=== PATIENT | male | born 1950 | race Caucasian/White ===

== ENCOUNTER 2024-01-01 06:33 | Emergency (ER) | payer OTHER, SELFPAY ==
[2024-01-01 06:46] VITALS: BP 192/107
[2024-01-01 07:59] VITALS: BMI 33.3
[2024-01-01 08:04] VITALS: BP 132/95
--- NOTE | 2024-01-01 08:22 | ED.GENMED ---
History of Present Illness
General
Chief Complaint: Blood Pressure Problem
Source: patient
Exam Limitations: none
Time Seen by Provider: 01/01/24 07:46
History of Present Illness
History of Present Illness:
73-year-old male presents with dizziness onset yesterday that resolved later yesterday associate with elevated blood pressure and pressure in his left arm. He states he is values at home are 190/100. He spoke with his cardiology office and they
advised that he double his losartan. He took the first time double dose of losartan this morning. His left arm pressure continued. He denies chest pain or shortness of breath. He denies any unilateral numbness or weakness. He denies a headache
or vision change.. No fever. No other complaints at this time
Past History
Past History
ED Past Medical History: HTN
ED Past Surgical History: Orthopedic (Bilateral quadriceps tendon tear with repair) and Other (Hernia repair)
Social History
Tobacco: Non-smoker
Alcohol: None
Personal:
Living: with family
Employment: Employed
Family History
Family History: Other (Not relevant)
Phy Exam
Physical Exam
Physical Exam:
General: Well-appearing but slightly anxious male no acute respiratory distress HEENT: Normocephalic atraumatic
Face is symmetric pupils equal round reactive to light extract motions are intact
Heart: Regular rate and rhythm no murmurs
Lungs: Clear no wheeze
Neurologic exam: Alert and oriented no facial asymmetry no drift finger-nose intact no aphasia or dysarthria visual carrillo intact
Extremities: No cyanosis
Course
Orders/Labs/Results
Orders:
Orders
01/01/24 06:49
EKG [Electrocardiogram (*1)] Stat
Reason for Study: Palpitations
EKG- Treatment ONCE
01/01/24 08:11
CT Head W/o Iv Contrast Urgent
Comment:
Reason For Exam: dizzy, elevated BP
01/01/24 08:17
Complete Blood Count/With Diff Urgent
Comprehensive Metabolic Panel Urgent
Troponin I Urgent
Abnormal Lab Results
01/01/24
08:17
MCH 32.1 H pg
(27.0-31.0)
MPV 11.2 H fL
(7.4-10.4)
Absolute Neuts (auto) 7.5 H 10^3/uL
(1.4-6.5)
Absolute Monos (auto) 0.8 H 10^3/uL
(0.1-0.6)
Lymphocytes % 16.7 L %
(20.5-51.1)
Glucose 103 H mg/dl
(70-99)
Total Protein 6.1 L g/dl
(6.3-8.2)
01/01/24 08:17
01/01/24 08:17
Vital Signs
Initial and Last Documented VS:
Initial Vital Signs
Temp Pulse Resp BP Pulse Ox
98.2 F 79 16 192/107 97
01/01/24 06:46 01/01/24 06:46 01/01/24 06:46 01/01/24 06:46 01/01/24 06:46
Last Documented Vital Signs
Temp Pulse Resp BP Pulse Ox
98.2 F 61 16 122/70 92
01/01/24 06:46 01/01/24 09:15 01/01/24 06:46 01/01/24 09:00 01/01/24 09:15
MDM/Problems Addressed
Differential Diagnosis Includes:
Elevated blood pressure readings with dizziness and left arm pressure. Overall patient does look well he is quite anxious about his symptoms. Will recheck blood pressure here given the left arm pressure to EKG and troponin. CT of the head would
be reassuring if negative.
*Critical Care Note
Total Time (30-74mins, 75-104mins- exclusive of procedures): Not Applicable
Update Note
Update Note:
Labs reviewed without significant finding. CT head negative. Blood pressure has improved nicely after taking his blood pressure medicine is now 122/70. Do not suspect acute stroke or ACS. Recommend he follow-up with his cardiology team. Stable
for discharge
ED Attending Note
-
Portions of this chart may have been created with voice recognition software.� Occasional wrong word or��sound alike� substitutions may have occurred due to the inherent limitations of voice recognition software.
Discharge Plan
Departure
Patient Disposition: Home (Routine Discharge)
Date of Disposition: 01/01/24
Time of Disposition: 09:47
Patient with high blood pressure during this ER visit?: Yes
Discharge Problem:
Elevated blood pressure reading
Instructions: High Blood Pressure (DC)
Prescriptions:
No Action
Losartan
1 tab PO DAILY
Patient Comments:
unsure of dose
Pantoprazole
40 mg PO DAILY
prednisolone acetate 1 DROP drops,suspension
1 drp RIGHT EYE QID Qty: 1 0RF
Referrals:
Henry Elizondo MD [Family Provider] -
Activity Restrictions/Additional Instructions:
Continue increased dose of your blood pressure medicine. Please return here for worsening symptoms otherwise follow-up with your dinkey motor operator
Interventions
Interventions:
*Risk Screen - Suicide Last Done: 01/01/24 07:59
*General Assessment Last Done: 01/01/24 07:59
*Neglect/Abuse Screening Last Done: 01/01/24 07:59
ED- Fall Risk Assessment Last Done: 01/01/24 07:59
*ED COVID-19 Vaccine History Last Done: 01/01/24 07:59
ED- Cardiac Assessment Last Done: 01/01/24 07:59
ED- Neurological Assessment Last Done: 01/01/24 07:59
ED- Pulmonary Assessment Last Done: 01/01/24 07:59
Discharge Date and Time
Print Language: MAORI
[2024-01-01 08:25] LABS: % Basophils 0.7 % (0-2); % Eosinophils 2.2 % (0-6); % Immature Granulocytes 0.3 % (0-0.5); % Lymphocytes 16.7 % (20.5-51.1); % Monocytes 7.5 % (1.7-9.3); % Neutrophils 72.6 % (42.2-75.2); Absolute Basophils 0.1 10^3/uL (0-0.2); Absolute Eosinophils 0.2 10^3/uL (0-0.7); Absolute Lymphocytes 1.7 10^3/uL (1.2-3.4); Absolute Monocytes 0.8 10^3/uL (0.1-0.6); Absolute Neutrophils 7.5 10^3/uL (1.4-6.5); Hematocrit 47.5 % (39.0-52.0); Mean Corp Hgb Conc. 35.8 g/dL (33.0-37.0); Mean Corpuscular Hgb 32.1 pg (27.0-31.0); Mean Corpuscular Volume 89.8 fL (80.0-94.0); Mean Platelet Volume 11.2 fL (7.4-10.4); Nucleated Red Blood Cells % 0 % (-); Platelet Count 186 10^3/uL (130-400); Red Blood Cell Count 5.29 10^6/uL (4.70-6.10); White Blood Cell Count 10.3 10^3/uL (4.8-10.8)
[2024-01-01 08:38] LABS: ALT (SGPT) 33 U/L (0-50); AST (SGOT) 29 U/L (17-59); Albumin 3.6 g/dl (3.5-5.0); Alkaline Phosphatase 59 U/L (38-126); Blood Urea Nitrogen 20 mg/dl (9-20); Calcium 9.1 mg/dl (8.4-10.2); Carbon Dioxide 27 mmol/L (22-30); Chloride 107 mmol/L (98-107); Estimated Creatinine Clearance 84 ml/min; Glucose 103 mg/dl (70-99); Potassium 4.1 mmol/L (3.5-5.1); Sodium 140 mmol/L (135-145); Total Bilirubin 1.1 mg/dl (0.2-1.3); Total Protein 6.1 g/dl (6.3-8.2); eGFR > 60.00
[2024-01-01 08:48] LABS: Troponin I < 0.012 ng/ml
[2024-01-01 09:00] VITALS: BP 122/70
== END 2024-01-01 10:10 | disposition home or self-care (01) ==
LOC: EMR 06:33
PROVIDERS: Physician Assistant; EMERGENCY PHYSICIAN Emergency Medicine; FAMILY PHYSICIAN Student in an Organized Health Care Education/Training Program
DX: R03.0 Elevated blood-pressure reading, without diagnosis of hypertension (principal); R42 Dizziness and giddiness; I10 Essential (primary) hypertension
CPT/HCPCS: 99284; 70450; 80053; 84484; 85025; 93005

== ENCOUNTER 2025-03-28 12:11 | Emergency (ER) | payer OTHER, SELFPAY ==
[2025-03-28 12:20] VITALS: BP 177/93
--- NOTE | 2025-03-28 13:03 | ED.GENMED ---
History of Present Illness
General
Chief Complaint: DVT/Possible Blood Clot
Source: patient
Exam Limitations: none
Time Seen by Provider: 03/28/25 12:35
Nursing documentation reviewed up to this point in time: agreed with
History of Present Illness
History of Present Illness:
Patient is a 74-year-old male that was sent to the ER for evaluation of DVT. He had an outpatient ultrasound which showed a clot. Records were obtained from [facility] which shows a nonocclusive left peroneal thrombus. Patient reports he has had
some knee issues and was being evaluated [facility] orthopedic. Because of the knee issues he was wearing a brace especially with working and noted some swelling around the brace. His orthopedic nurse practitioner ordered the ultrasound yesterday.
He denies any shortness of breath. 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
Past History
Past History
ED Past Medical History: HTN
ED Past Surgical History: Orthopedic (Bilateral quadriceps tendon tear with repair) and Other (Hernia repair)
Social History
Tobacco: Non-smoker
Alcohol: None
Personal:
Living: with family
Employment: Employed
Family History
Family History: Other (Not relevant)
Phy Exam
General Physical Exam
General Presentation: no apparent distress
General age: appears stated age
General Skin: warm and dry
General Habitus: normal
General Mental: alert
General Hydration: appears well hydrated
Cardiovascular Exam
Cardiovascular Exam: regular rate/rhythm, no murmur and normal peripheral pulses
Pulmonary Exam
Pulmonary Exam: lungs clear and no respiratory distress
Neurological Exam
Neurological Exam: alert, oriented x3, no motor deficits and no sensory deficits
Musculoskeletal Exam
Musculoskeletal Exam: other (Left lower extremity with swelling to calf strong pulses normal sensation normal cap refill)
Skin Exam
Skin Exam: normal color and warm/dry
Psychiatric Exam
Psychiatric Exam: normal mood/affect
Course
Orders/Labs/Results
Orders:
Orders
03/28/25 13:26
IV Insert/Care/Rem.- Treatment PRN
03/28/25 13:35
Complete Blood Count/With Diff Urgent
Comprehensive Metabolic Panel Urgent
Abnormal Lab Results
03/28/25
13:35
MCH 31.4 H pg
(27.0-31.0)
Absolute Monos (auto) 1.0 H 10^3/uL
(0.1-0.6)
Monocytes % 10.9 H %
(1.7-9.3)
BUN 24 H mg/dl
(9-20)
03/28/25 13:35
03/28/25 13:35
Vital Signs
Initial and Last Documented VS:
Initial Vital Signs
Temp Pulse Resp BP Pulse Ox
98.4 F 81 19 177/93 96
03/28/25 12:20 03/28/25 12:20 03/28/25 12:20 03/28/25 12:20 03/28/25 12:20
Last Documented Vital Signs
Temp Pulse Resp BP Pulse Ox
98.4 F 81 19 177/93 96
03/28/25 12:20 03/28/25 12:20 03/28/25 12:20 03/28/25 12:20 03/28/25 13:05
Business Segment Manager consulted with Physician
Business Segment Manager consulted with physician?: Yes
Name of Physician Consulted: danish
MDM/Problems Addressed
Differential Diagnosis Includes:
Not limited to DVT
MDM/Problems Addressed:
Patient is a 74-year-old male who presents with left calf discomfort. Had an outpatient ultrasound which showed a nonocclusive left peroneal thrombus. 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 He is not
short of breath. He is in no acute distress lungs are clear nontachycardic nontachypneic. Patient with normal renal function stable hemoglobin. Case reviewed with hematology regarding Susan filter and new onset DVT would still recommend to
administer anticoagulation. Will DC on Eliquis with close outpatient follow-up with family doctor.
*Radiology
Radiology exam reviewed: other (Outpatient ultrasound report obtained)
*Pulse Oximetry
SaO2: 96
Oxygen Mode of Delivery: Room air
Patient hypoxic: no
*Critical Care Note
Total Time (30-74mins, 75-104mins- exclusive of procedures): Not Applicable
Patient Management
Discussion with other providers: Orange Picker Machine Operator (Dr Mancuso hematology )
ED Attending Note
-
Portions of this chart may have been created with voice recognition software.� Occasional wrong word or��sound alike� substitutions may have occurred due to the inherent limitations of voice recognition software.
Discharge Plan
Departure
Patient Disposition: Home (Routine Discharge)
Date of Disposition: 03/28/25
Time of Disposition: 14:29
Patient with high blood pressure during this ER visit?: Yes
Condition: Fair
Covid-19: Not Applicable
Discharge Problem:
DVT (deep venous thrombosis)
Instructions: Deep Vein Thrombosis (Blood Clots in the Legs) (DC), BLOOD PRESSURE
Prescriptions:
New
Eliquis DVT-PE Treat 30D Start 5 mg (74 tabs) tablets,dose pack
5 mg PO ONCE Qty: 74 0RF
Rx Instructions:
10 mg twice daily for 7 days followed by 5 mg twice daily
No Action
Losartan
1 tab PO DAILY
Patient Comments:
unsure of dose
Pantoprazole
40 mg PO DAILY
prednisolone acetate 1 DROP drops,suspension
1 drp RIGHT EYE QID Qty: 1 0RF
Referrals:
Henry Elizondo MD [Family Provider, Internal Medicine]
Stand Alone Forms: Return to Work
Activity Restrictions/Additional Instructions:
As discussed a prescription for Eliquis was sent to your pharmacy take 10 mg twice daily for 7 days followed by 5 mg twice daily.
Follow-up with your family doctor in extremities for reevaluation. Return if any worsening of symptoms including difficulty breathing or increased swelling.
Interventions
Interventions:
*Risk Screen - Suicide Last Done: 03/28/25 12:20
*General Assessment Last Done: 03/28/25 12:20
*Neglect/Abuse Screening Last Done: 03/28/25 12:20
*ED- Fall Risk Assessment Last Done: 03/28/25 13:16
*ED COVID-19 Vaccine History Last Done: 03/28/25 13:16
*ED Influenza Vaccine History Last Done: 03/28/25 13:16
ED- Cardiac Assessment Last Done: 03/28/25 13:16
ED- Pulmonary Assessment Last Done: 03/28/25 13:16
ED-Peripheral Vascular Assessment Last Done: 03/28/25 13:16
ED-Skin Assessment Last Done: 03/28/25 13:16
Discharge Date and Time
Print Language: LUXEMBOURGISH
[2025-03-28 13:46] LABS: Hematocrit 46.5 % (39.0-52.0); Hemoglobin 16.2 g/dL (13.0-18.0); Mean Corp Hgb Conc. 34.8 g/dL (33.0-37.0); Mean Corpuscular Volume 90.1 fL (80.0-94.0); Nucleated Red Blood Cells % 0 % (-); Platelet Count 208 10^3/uL (130-400); Red Cell Dist. Width 14.5 % (11.5-14.5)
[2025-03-28 14:01] LABS: ALT (SGPT) 35 U/L (0-50); AST (SGOT) 27 U/L (17-59); Albumin 3.8 g/dl (3.5-5.0); Alkaline Phosphatase 56 U/L (38-126); Blood Urea Nitrogen 24 mg/dl (9-20); Calcium 9.0 mg/dl (8.4-10.2); Carbon Dioxide 28 mmol/L (22-30); Chloride 107 mmol/L (98-107); Glucose 91 mg/dl (70-99); Potassium 4.2 mmol/L (3.5-5.1); Sodium 136 mmol/L (135-145); Total Protein 6.6 g/dl (6.3-8.2); eGFR > 60.00
--- NOTE | 2025-03-28 14:08 | EDCM ---
Pt given 30 day free trial card for Eliquis, instructed him to give it the the pharmacy when he picks up the med. I called [facility] to inquire about monthly cost but they cannot quote a batista without the prescription. Pt will follow up with
Pharmacy when he picks up the script. Thuy QUINTEROS notified.
[2025-03-28 14:45] VITALS: BP 124/76
== END 2025-03-28 14:48 | disposition home or self-care (01) ==
LOC: EMR 12:11
PROVIDERS: Nurse Practitioner; EMERGENCY PHYSICIAN Emergency Medicine; FAMILY PHYSICIAN Student in an Organized Health Care Education/Training Program
DX: I82.452 Acute embolism and thrombosis of left peroneal vein (principal); I10 Essential (primary) hypertension; Z79.01 Long term (current) use of anticoagulants; Z86.718 Personal history of other venous thrombosis and embolism; Z95.828 Presence of other vascular implants and grafts
CPT/HCPCS: 99283; 80053; 85025

== ENCOUNTER 2025-05-09 11:04 | Emergency (ER) | payer OTHER, SELFPAY ==
[2025-05-09 11:43] VITALS: BP 167/87
[2025-05-09 12:05] LABS: Hematocrit 48.8 % (39.0-52.0); Hemoglobin 16.8 g/dL (13.0-18.0); Mean Corp Hgb Conc. 34.4 g/dL (33.0-37.0); Mean Corpuscular Volume 90.2 fL (80.0-94.0); Nucleated Red Blood Cells % 0 % (-); Platelet Count 205 10^3/uL (130-400); Red Cell Dist. Width 14.4 % (11.5-14.5)
[2025-05-09 12:21] LABS: ALT (SGPT) 32 U/L (0-50); AST (SGOT) 26 U/L (17-59); Albumin 3.9 g/dl (3.5-5.0); Alkaline Phosphatase 53 U/L (38-126); Blood Urea Nitrogen 22 mg/dl (9-20); Calcium 8.8 mg/dl (8.4-10.2); Carbon Dioxide 26 mmol/L (22-30); Chloride 105 mmol/L (98-107); Glucose 92 mg/dl (70-99); Potassium 4.1 mmol/L (3.5-5.1); Sodium 135 mmol/L (135-145); Total Protein 6.5 g/dl (6.3-8.2); eGFR > 60.00
--- NOTE | 2025-05-09 17:23 | ED.GENMED ---
History of Present Illness
General
Chief Complaint: Blood Pressure Problem
Source: patient
Exam Limitations: none
Time Seen by Provider: 05/09/25 17:13
History of Present Illness
History of Present Illness:
74yoM with a history of hypertension and recent DVT on Eliquis presenting for evaluation of dizziness. Symptoms have been intermittent over the past several days. He reports that he is waking up dizzy in the morning and symptoms resolved by the
afternoon. He describes his dizziness as feeling lightheaded. Symptoms are worse with position changes and standing up. He was able to function well the past few days and go to work. He denies any dizziness currently. He decided check his blood
pressure today which was elevated at home with systolic blood pressures ranging in the 170-190 range. He called his PCP and was told to go to the ED for evaluation. He denies any headache, visual changes, chest pain, shortness of breath. He takes
losartan 100 mg daily and has an appointment PCP in 2 days.
Past History
Past History
ED Past Medical History: HTN
ED Past Surgical History: Orthopedic (Bilateral quadriceps tendon tear with repair) and Other (Hernia repair)
Social History
Tobacco: Non-smoker
Alcohol: None
Personal:
Living: with family
Employment: Employed
Family History
Family History: Other (Not relevant)
Phy Exam
General Physical Exam
General Presentation: well appearing and no apparent distress
General age: appears stated age
General Skin: warm and dry
General Habitus: normal
General Mental: alert
ENT Exam
ENT Exam: normocephalic
Eye Exam
Eye Exam: PERRL
Cardiovascular Exam
Cardiovascular Exam: regular rate/rhythm and no edema
Pulmonary Exam
Pulmonary Exam: lungs clear, no respiratory distress, no rales, no crackles, no rhonchi, no stridor and no wheezing
Neurological Exam
Neurological Exam: alert, no motor deficits and speech normal
Quynh Coma Scale
Eye Opening: Spontaneous
Verbal Response: Oriented
Motor Response: Obeys Commands
GCS Total Score: 15
Skin Exam
Skin Exam: normal color and warm/dry
Psychiatric Exam
Psychiatric Exam: normal mood/affect
Course
Orders/Labs/Results
Orders:
Orders
05/09/25 11:46
EKG [Electrocardiogram (*1)] Urgent
Reason for Study: Vertigo / Dizzy
EKG- Treatment ONCE
05/09/25 11:53
CBC/With Diff [Complete Blood Count/With Diff] Urgent
Comprehensive Metabolic Panel Urgent
05/09/25 17:42
Cardiac Monitoring- Treatment ONCE
05/09/25 18:17
Troponin I Urgent
Abnormal Lab Results
05/09/25
11:53
MCH 31.1 H pg
(27.0-31.0)
Absolute Monos (auto) 1.0 H 10^3/uL
(0.1-0.6)
Lymphocytes % 19.5 L %
(20.5-51.1)
Monocytes % 10.7 H %
(1.7-9.3)
BUN 22 H mg/dl
(9-20)
05/09/25 11:53
05/09/25 11:53
Vital Signs
Initial and Last Documented VS:
Initial Vital Signs
Temp Pulse Resp BP Pulse Ox
98.2 F 74 16 167/87 98
05/09/25 11:43 05/09/25 11:43 05/09/25 11:43 05/09/25 11:43 05/09/25 11:43
Last Documented Vital Signs
Temp Pulse Resp BP Pulse Ox
98.2 F 72 16 138/82 98
05/09/25 11:43 05/09/25 19:00 05/09/25 19:00 05/09/25 19:00 05/09/25 18:22
MDM/Problems Addressed
Differential Diagnosis Includes:
74yoM here with intermittent lightheadedness x several days. BP elevated today and he was sent to the ED by his PCP's office. Asymptomatic currently without dizziness. No CP/SOB. BP 167/87 in triage. Vitals otherwise stable. He is well appearing in
no distress with reassuring exam. Differential diagnosis includes: orthostasis, asymptomatic hypertension, doubt ACS, no clinical symptoms to suggest hypertensive emergency
Initial ED plan: Workup initiated in triage. EKG shows normal sinus rhythm without ischemic changes. Basic labs unremarkable including normal renal function. Will check troponin and placed on brake lining curer.
*Pulse Oximetry
SaO2: 98
Oxygen Mode of Delivery: Room air
Patient hypoxic: no
*EKG
Interpreted by ED Provider?: Yes
EKG Intrepretation Date: 05/09/25
Heart Rate: 68
Rate: normal
Rhythm: sinus and PVC's
Glover: normal axis
Interval: normal interval
QRS Pattern: normal QRS
Ischemia: no ischemia
*Critical Care Note
Total Time (30-74mins, 75-104mins- exclusive of procedures): Not Applicable
Update Note
Update Note:
Troponin undetectable. Blood pressure improved to 138/82 without intervention. Patient remains asymptomatic on reassessment. No indication for hospitalization. He has an appointment scheduled with his PCP in 2 days. ED return precautions
reviewed. Patient in agreement with plan and he was discharged in stable condition.
ED Attending Note
-
Portions of this chart may have been created with voice recognition software.� Occasional wrong word or��sound alike� substitutions may have occurred due to the inherent limitations of voice recognition software.
Discharge Plan
Departure
Patient Disposition: Home (Routine Discharge)
Date of Disposition: 05/09/25
Time of Disposition: 19:06
Patient with high blood pressure during this ER visit?: Yes
Discharge Problem:
Lightheadedness, Hypertension
Instructions: High Blood Pressure (DC)
Prescriptions:
No Action
Losartan
1 tab PO DAILY
Patient Comments:
unsure of dose
Pantoprazole
40 mg PO DAILY
prednisolone acetate 1 DROP drops,suspension
1 drp RIGHT EYE QID Qty: 1 0RF
Eliquis DVT-PE Treat 30D Start 5 mg (74 tabs) tablets,dose pack
5 mg PO ONCE Qty: 74 0RF
Rx Instructions:
10 mg twice daily for 7 days followed by 5 mg twice daily
Referrals:
Henry Elizondo MD [Family Provider, Internal Medicine]
Stand Alone Forms: Return to Work
Activity Restrictions/Additional Instructions:
Continue taking losartan daily.
Please follow-up with your family doctor on Wednesday as previously scheduled. Return to the ER with any worsening symptoms including chest pain, severe headache, or stroke-like symptoms.
Interventions
Interventions:
*General Assessment Last Done: 05/09/25 11:43
*Neglect/Abuse Screening Last Done: 05/09/25 11:43
*ED Influenza Vaccine History Last Done: 05/09/25 11:43
[facility] Fall Risk Assessment Tool Last Done: 05/09/25 17:29
*Risk Screen - Suicide (C-SSRS) Last Done: 05/09/25 11:45
*Nursing Disposition Last Done: 05/09/25 19:12
ED- Cardiac Assessment Last Done: 05/09/25 18:22
ED- Neurological Assessment Last Done: 05/09/25 18:22
ED- Pulmonary Assessment Last Done: 05/09/25 18:22
Discharge Date and Time
Discharge Date/Time: 05/09/25 19:15
Print Language: [id number]
[2025-05-09 18:21] VITALS: BP 139/79
[2025-05-09 18:52] LABS: Troponin I < 0.012 ng/ml
[2025-05-09 19:00] VITALS: BP 138/82
== END 2025-05-09 19:15 | disposition home or self-care (01) ==
LOC: EMR 11:04
PROVIDERS: Physician Assistant; Student in an Organized Health Care Education/Training Program; EMERGENCY PHYSICIAN Emergency Medicine; FAMILY PHYSICIAN Student in an Organized Health Care Education/Training Program
DX: R42 Dizziness and giddiness (principal); I10 Essential (primary) hypertension; Z86.718 Personal history of other venous thrombosis and embolism; Z79.01 Long term (current) use of anticoagulants
CPT/HCPCS: 99284; 80053; 84484; 85025; 93005